=== PATIENT | female | born 1955 ===

== ENCOUNTER 2021-05-27 07:05 | Day surgery (SDC) | payer OTHER ==
[~2021-05-27 07:05] MED LIST: CHILDREN'S ASPI81 MG; DALIRESP250 MCG; TOPROL XL50 M1; ZESTRIL20 MG
== END 2021-05-27 19:35 | disposition home or self-care (01) ==
LOC: CIR.AMB 07:05
PROVIDERS: ATTEND Orthopaedic Surgery Hand Surgery
DX: M19.031 Primary osteoarthritis, right wrist (principal); Z20.822 Contact with and (suspected) exposure to COVID-19